=== PATIENT | female | born 1980 | race Caucasian/White ===

== ENCOUNTER 2019-02-21 23:20 | Emergency (ER) | payer OTHER ==
[~2019-02-21 23:20] MED LIST: CYAN1TAB44 PO; FERR-89 PO
== END 2019-02-22 | disposition left against medical advice (07) ==
LOC: EMS 23:22
DX: M79.603 Pain in arm, unspecified (principal); Z53.21 Procedure and treatment not carried out due to patient leaving prior to being seen by health care provider

== ENCOUNTER 2024-11-08 13:20 | Emergency (ER) | payer OTHER ==
[~2024-11-08] VITALS: Ht 165.1 cm; Wt 131.8 kg
[~2024-11-08 13:20] MED LIST changes: -FERR-89 PO; +FERR325T27 PO
[2024-11-08 13:30] VITALS: TEMP 98.1
[2024-11-08] MEDS: MetroNIDAZOLE 250 MG TABLET PO ONE (16:12)
[2024-11-08] MEDS: HYDROCODONE/ACETAMINOPHEN 5-325 MG TABLET PO ONE (16:12)
[2024-11-08] MEDS: DOXYCYCLINE HYCLATE 100 MG TABLET PO ONE (16:13)
[2024-11-08] MEDS ORDERED: HYDR-4062 PO (16:18)
[2024-11-08] MEDS ORDERED: DOXY50 PO (16:18)
[2024-11-08] MEDS ORDERED: METR500 PO (16:18)
[2024-11-08 16:52] VITALS: BP 126/89; PULSE 86; RESP 18; O2SAT 99
== END 2024-11-08 16:54 | disposition home or self-care (01) ==
LOC: EMS 13:24
DX: S71.152A Open bite, left thigh, initial encounter (principal); K04.7 Periapical abscess without sinus; F17.210 Nicotine dependence, cigarettes, uncomplicated; Z88.0 Allergy status to penicillin; Z90.710 Acquired absence of both cervix and uterus; W54.0XXA Bitten by dog, initial encounter; Y93.89 Activity, other specified; Y92.89 Other specified places as the place of occurrence of the external cause; Y99.8 Other external cause status
CPT/HCPCS: 99284; Z7502; Z7610